=== PATIENT | female | born 1995 | race Asian ===

== ENCOUNTER → 2019-12-02 16:12 | Outpatient (CLI) | payer OTHER, SELFPAY ==
--- NOTE | 2019-12-02 16:15 | DI.MRI.S_ITS ---
PROCEDURE: MR PELIS WO/W CON INDICATIONS: ARTHROPATHY IN SI JOINTS TECHNIQUE: Noncontrast axial and oblique coronal T1 spin echo and STIR through the sacroiliac joints. COMPARISON: None. FINDINGS: Image quality: Excellent. Bones: The sacroiliac joints appear intact. There is adjacent bone marrow edema and enhancement consistent with active sacroiliitis. This is best seen on precontrast imaging, fat suppressed T2 axial imaging series 5, with the edema pattern present both within the sacrum and medial iliac bone abutting the sacroiliac joint at the upper and middle thirds on the left and also including the lower 3rd on the right. This pattern can also be seen on postcontrast axial and coronal imaging, best visualized on the coronal pulse sequence series 9, image 9 -10. No bony ankylosis. No suspicious marrow space occupying lesions. Soft tissues: No presacral masses. Rectum appears normal in caliber and wall thickness. No pathologic free pelvic fluid. IMPRESSION: Trauma is not found, osseous erosions are not identified. There is, however, abnormal elevated marrow signal with contrast enhancement along the margins of the sacroiliac joints bilaterally, right slightly greater than left. Active bilateral sacroiliitis appears present at this time, without ankylosis. Dictated by: Ovidio Larkin M.D. on 12/03/2019 at 9:11 Approved by: Ovidio Larkin M.D. on 12/03/2019 at 9:19
== END ==
PROVIDERS: Referring Provider Internal Medicine Rheumatology; Visit Provider Internal Medicine Rheumatology
DX: M46.1 Sacroiliitis, not elsewhere classified (principal)
CPT/HCPCS: 72197; A9579